=== PATIENT | female | born 1980 | race Caucasian/White ===

== ENCOUNTER 2019-09-05 10:05 | Emergency (ER) | payer MEDICAID ==
[~2019-09-05] VITALS: Ht 137.2 cm; Wt 61.4 kg
[2019-09-05 10:09] VITALS: Ht 137.2 cm; Wt 61.4 kg
[2019-09-05 11:18] LABS: CALCIUM 8.6 mg/dL (8.5-10.1); CARBON DIOXIDE 26.3 mmol/L (21-32); CHLORIDE SERUM 104 mmol/L (98-107); CREATININE SERUM 0.6 mg/dL (0.6-1.0); GFR1 > 60 mL/min; GLUCOSE SERUM 89 mg/dL (74-106); POTASSIUM SERUM 3.7 mmol/L (3.5-5.1); SODIUM SERUM 138 mmol/L (136-145)
[2019-09-05 11:19] LABS: BASOPHIL % 0.8 % (0-2); PLATELET COUNT 253 x10^3mcL (130-400); RED CELL DISTRIBUTION WIDTH 14.3 % (11.5-14.5)
[2019-09-05 11:29] LABS: ALKALINE PHOSPHATASE 73 U/L (46-116); ALT/SGPT 20 U/L (14-59); AST/SGOT 15 U/L (15-37); BILIRUBIN TOTAL 0.58 mg/dL (0.20-1.00); T4(THYROXINE) 9.7 ug/dL (4.7-13.3)
[2019-09-05 11:41] LABS: TOTAL PROTEIN, SERUM 8.3 g/dL (6.4-8.2)
[2019-09-05 12:32] LABS: AMPHETAMINE QUAL UR NONE DETECTED (See below)
[2019-09-05 13:29] VITALS: BP 100/56
== END 2019-09-05 13:36 | disposition home or self-care (01) ==
LOC: ED 10:05
PROVIDERS: Emergency Medicine
DX: R00.2 Palpitations (principal); Z88.6 Allergy status to analgesic agent
CPT/HCPCS: 36415; Q0092

== ENCOUNTER 2019-09-19 13:03 | Emergency (ER) | payer MEDICAID ==
[~2019-09-19] VITALS: Ht 162.6 cm; Wt 59.4 kg
[2019-09-19 13:11] VITALS: Ht 162.6 cm; Wt 59.4 kg
[2019-09-19 13:53] LABS: PLATELET COUNT 276 x10^3mcL (130-400); RED CELL DISTRIBUTION WIDTH 14.3 % (11.5-14.5)
[2019-09-19 13:54] LABS: BASOPHIL % 1.2 % (0-2)
[2019-09-19 14:13] LABS: ALBUMIN 4.1 g/dL (3.4-5.0); ALKALINE PHOSPHATASE 71 U/L (46-116); ALT/SGPT 23 U/L (14-59); AST/SGOT 17 U/L (15-37); BILIRUBIN TOTAL 0.3 mg/dL (0.20-1.00); CARBON DIOXIDE 27.5 mmol/L (21-32); CHLORIDE SERUM 104 mmol/L (98-107); CREATININE SERUM 0.6 mg/dL (0.6-1.0); GFR1 > 60 mL/min; GLUCOSE SERUM 93 mg/dL (74-106); POTASSIUM SERUM 3.7 mmol/L (3.5-5.1); SODIUM SERUM 141 mmol/L (136-145)
[2019-09-19 14:21] LABS: TOTAL PROTEIN, SERUM 8.5 g/dL (6.4-8.2)
[2019-09-19 15:03] VITALS: BP 123/71
== END 2019-09-19 15:03 | disposition home or self-care (01) ==
LOC: ED 13:03
PROVIDERS: Emergency Medicine
DX: R53.1 Weakness (principal); F41.9 Anxiety disorder, unspecified; R42 Dizziness and giddiness; K21.9 Gastro-esophageal reflux disease without esophagitis
CPT/HCPCS: 36415